=== PATIENT | female | born 1965 | race Caucasian/White ===

== ENCOUNTER → 2016-04-24 | Outpatient (CLI) | payer BC, OTHER ==
[~2016-04-24] MED LIST: ATV5X PO; CALC600T9 PO; IMT100 PO; MULT-506 PO; OMEG10007 PO; SRQ300 PO; SUMA1INJ5 IM; VRPSR180 PO; VST25HP PO
--- NOTE | 2016-04-24 11:40 | DIAGNOSTIC IMAGING REPORT ---
PELVIS AND RIGHT HIP RADIOGRAPHS CLINICAL HISTORY: Right hip pain. COMPARISON: Pelvis radiograph March 19, 2014. FINDINGS: The iliac crests are not included on this exam. The sacroiliac joints and symphysis pubis are intact. There is no fracture or suspicious lesion within the pelvis or hips. There is mild to moderate joint space narrowing of the hips with osteophytosis. There is no evidence for avascular necrosis. IMPRESSION: 1. Mild to moderate joint space narrowing and osteophytosis of both hips. 2. No acute fracture within the pelvis or hips. Electronically signed by: Javier Barksdale M.D. 04/24/2016 11:38 AM Dictated Date/Time: 04/24/2016 11:32 AM
== END | disposition home or self-care (01) ==
LOC: C.RDSM 11:12
PROVIDERS: ATTEND Physical Medicine & Rehabilitation Sports Medicine
DX: R52 Pain, unspecified (principal); M16.0 Bilateral primary osteoarthritis of hip; M25.751 Osteophyte, right hip; M25.752 Osteophyte, left hip

== ENCOUNTER → 2016-09-25 | Outpatient (CLI) | payer BC ==
--- NOTE | 2016-09-25 11:18 | DIAGNOSTIC IMAGING REPORT ---
ULTRASOUND ABDOMEN COMPLETE CLINICAL HISTORY: Generalized abdominal pain. COMPARISON STUDY: Abdominal CT dated 12/20/2013. TECHNIQUE: Real-time, grayscale, and color flow sonography of the abdomen was performed. Images are reviewed in the transverse and longitudinal planes. FINDINGS: Liver: The liver is normal in size and echotexture. There is no intrahepatic biliary ductal dilatation. The main portal vein is patent. Gallbladder: The gallbladder is normal in appearance. No gallstones are identified. There is no gallbladder wall thickening or pericholecystic fluid. A sonographic Moore's sign is reportedly absent. The common bile duct measures up to 0.4 cm in diameter. Pancreas: Visualized portions of the pancreatic head and body are normal in appearance. Spleen: The spleen is normal in size and echotexture, measuring 8.8 cm in length. Kidneys: The kidneys are normal in size and echotexture. There is no hydronephrosis. The right kidney measures 10.3 cm in length and the left kidney measures 10.9 cm in length. No shadowing calculi are identified. Abdominal vasculature: Visualized portions of the abdominal aorta and IVC are normal in appearance. Ascites: None. IMPRESSION: Unremarkable sonographic assessment of the abdomen. Electronically signed by: George Becerra M.D. 09/25/2016 11:17 AM Dictated Date/Time: 09/25/2016 10:20 AM
== END | disposition home or self-care (01) ==
LOC: C.ULTR 09:47
PROVIDERS: ATTEND Family Medicine
DX: R10.30 Lower abdominal pain, unspecified (principal); F33.9 Major depressive disorder, recurrent, unspecified; Z79.899 Other long term (current) drug therapy

== ENCOUNTER → 2016-09-25 | Outpatient (CLI) | payer BC ==
[2016-09-25 12:48] LABS: CHOLESTEROL/HDL RATIO 3.3; THYROID STIMULATING HORMONE 1.41 uIu/ml (0.300-4.500)
== END | disposition home or self-care (01) ==
LOC: C.LAB 09:49
PROVIDERS: ATTEND Psychiatry & Neurology Psychiatry
DX: F33.9 Major depressive disorder, recurrent, unspecified (principal); Z79.899 Other long term (current) drug therapy

== ENCOUNTER → 2017-03-09 | Outpatient (CLI) | payer BC ==
--- NOTE | 2017-03-09 14:58 | DIAGNOSTIC IMAGING REPORT ---
LUMBAR SPINE MIN 4 VIEWS CLINICAL HISTORY: ACUTE BILATERAL BACK PAIN COMPARISON STUDY: 03/30/2012 FINDINGS: No acute fractures or subluxations are visualized. No destructive lesions are evident. There are mild multilevel degenerative changes most pronounced in the lower thoracic spine. IMPRESSION: 1. No fractures or subluxations identified 2. Mild multilevel degenerative change Electronically signed by: Sergio Lehman M.D. 03/09/2017 2:57 PM Dictated Date/Time: 03/09/2017 2:56 PM
== END | disposition home or self-care (01) ==
LOC: C.RDSM 11:30
PROVIDERS: ATTEND Internal Medicine
DX: M54.9 Dorsalgia, unspecified (principal); M89.8X8 Other specified disorders of bone, other site

== ENCOUNTER → 2017-03-24 | Outpatient (CLI) | payer BC | END | disposition home or self-care (01) | LOC: C.PAPS 13:29 | PROVIDERS: ATTEND Obstetrics & Gynecology | DX: Z01.419 Encounter for gynecological examination (general) (routine) without abnormal findings (principal) ==

== ENCOUNTER → 2017-03-24 | Outpatient (CLI) | payer BC | END | disposition home or self-care (01) | LOC: C.LABSPEC 13:38 | PROVIDERS: ATTEND Obstetrics & Gynecology | DX: N76.0 Acute vaginitis (principal) ==

== ENCOUNTER 2017-06-01 16:04 | Emergency (ER) | payer BC ==
[~2017-06-01] VITALS: Ht 167.6 cm; Wt 72.7 kg
[2017-06-01 16:07] VITALS: TEMP 37.1; Ht 167.6 cm; Wt 72.7 kg
[2017-06-01 16:51] VITALS: O2SAT 100
[2017-06-01] MEDS ORDERED: SODIUM CHLORIDE 0.9% 500ML 500 ML IV STA (17:03)
[2017-06-01] MEDS ORDERED: LORAZEPAM 2 MG/ML 1 ML VIAL IV STA (17:19)
[2017-06-01 17:22] LABS: BASO % 0.3 %; BASO ABS # 0.03 K/uL (0-0.2); EOS % 0.7 %; EOS ABS # 0.06 K/uL (0-0.5); HEMATOCRIT 44.4 % (37-47); HEMOGLOBIN 15.7 g/dL (12.0-16.0); IG# 0.02 K/uL (0.00-0.02); LYMPH ABS # 1.47 K/uL (1.2-3.4); MEAN CELL VOLUME 90.6 fL (80-100); MEAN CORPUSCULAR HGB CONC 35.4 g/dl (32-36); MEAN PLATELET VOLUME 9.6 fL (7.4-10.4); MONO % 5.3 %; MONO ABS # 0.46 K/uL (0.11-0.59); NEUT % 76.5 %; NEUT ABS # 6.63 K/uL (1.4-6.5); PLATELET COUNT 280 K/uL (130-400); RED CELL DISTRIBUTION WIDTH CV 12.5 % (11.5-14.5); RED CELL DISTRIBUTION WIDTH SD 41.7 fL (36.4-46.3); WHITE BLOOD COUNT 8.67 K/uL (4.8-10.8)
[2017-06-01 17:47] LABS: ALBUMIN 4.1 gm/dl (3.4-5.0); ALT/SGPT 19 U/L (12-78); BLOOD UREA NITROGEN 14 mg/dl (7-18); CALCIUM 8.9 mg/dl (8.5-10.1); CARBON DIOXIDE 23 mmol/L (21-32); CREATININE 1.28 mg/dl (0.60-1.20); GLUCOSE 93 mg/dl (70-99); POTASSIUM 3.6 mmol/L (3.5-5.1); SODIUM 135 mmol/L (136-145)
[2017-06-01 17:58] LABS: ALKALINE PHOSPHATASE 39 U/L (45-117); AST/SGOT 21 U/L (15-37)
[2017-06-01 17:58] LABS: INFLUENZA B ANTIGEN Neg for Influ B (NEG)
[2017-06-01] MEDS ORDERED: TOPI50TA24 PO (18:48)
[2017-06-01] MEDS ORDERED: GADAVIST IV PRN (19:15)
--- NOTE | 2017-06-01 19:20 | DIAGNOSTIC IMAGING REPORT ---
BRAIN COMBO HISTORY: 51 years-old Female atypical head, hx migraines, posterior headache acute posterior headache with high blood pressure and history of migraines COMPARISON: MRI brain 01/11/2014 TECHNIQUE: Multiplanar multisequence MRI of the brain was obtained both with and without the use of 7 mL Gadavist FINDINGS: Large field of view inside b2b sales localizer images demonstrate no gross abnormality. Midline structures including the corpus callosum, brainstem, optic chiasm, pituitary and pineal glands appear unremarkable on the sagittal T1 series. No cerebellar tonsillar herniation. Minimal degenerative changes of the imaged cervical spine. There is no restricted diffusion to suggest acute or subacute infarction. No acute intracranial hemorrhage, midline shift, abnormal extra-axial collections or hydrocephalus. No significant abnormal T2/FLAIR signal abnormalities within the brain parenchyma. There is no abnormal intra-axial or extra-axial enhancement identified. Major flow voids at the level of the skull base appear patent. Orbits are symmetric and within normal limits. Paranasal sinuses are generally clear. Mastoid air cells are also clear. Scalp, calvarium and soft tissues are unremarkable. IMPRESSION: 1. No acute intracranial abnormality. 2. No abnormal intra-axial or extra-axial enhancement. The above report was generated using voice recognition software. It may contain grammatical, syntax or spelling errors. Electronically signed by: Aniceto Edwards M.D. 06/01/2017 7:19 PM Dictated Date/Time: 06/01/2017 7:13 PM
--- NOTE | 2017-06-01 19:32 | EMERGENCY ROOM VISIT NOTE ---
History Report prepared by Bulmaro: Shikha Laguerre Under the Supervision of: Dr. Patty Barry D.O. First contact with patient: 16:19 Chief Complaint: HYPERTENSION Stated Complaint: HEADACHE, HIGH BLOOD PRESSURE, VERTIGO History of Present Illness The patient is a 51 year old female who presents to the Emergency Room with complaints of an episode of hypertension occurring this morning. The patient was seen by her PCP this afternoon who noticed her blood pressure was high and referred her to the ED. Her blood pressure on arrival to the ED was 160/112. The patient has a history of anxiety. She states she was on Lamictal for a couple months and started tapering off of it a couple of weeks ago. She reports the highest dose of Lamictal she was on was 150 mg. The patient reports she has had headache which started when she started tapering off. She has a history of migraines however she reports her headaches recently have been more of a tension headache rather than her normal migraines. She states she has been having the migraines daily. The patient also reports rashes, sore throats, vertigo, numbness and tingling in finger tips which she believes is a result of Lamictal withdrawal. She states "I may have gotten too excited with tapering off my Lamictal". She reports when she went down to 25 mg of Lamictal she started having these symptoms. The patient also had neuro feedback treatment when her symptoms of headache began which was also when she was tapering off her Lamictal. The patient also notes fatigue beginning yesterday. 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 The patient states "my issue plain and simple is untreated anxiety". The patient was on Lorazepam previously for 10 years. She reports the Lorazepam worked well for her but her PCP took her off of because it "wasn't a good vb developer medication" The patient believes she last had imaging on her head in 2011. Pt denies change in vision, fevers, chest pain, shortness of breath, nausea, vomiting, diarrhea, pain with urination , and melena. Source of History: patient Onset: just prior to arrival Position: other (generalized) Quality: other (hypertension) Timing: other (episode) Associated Symptoms: + headache, + fatigue, + numbness, No fevers, No chest pain, No SOB, No nausea, No vomiting Review of Systems See HPI for pertinent positives & negatives. A total of 10 systems reviewed and were otherwise negative. Past Medical & Surgical Medical Problems: (1) Hypertension Nos (2) Irritable Bowel Syndrome (3) Lumbar Disc Displacement (4) Migraine (5) Posttraumatic Stress Disorder (6) Unspec Constipation Surgical Problems: (1) H/O discectomy Family History Cancer Social History Smoking Status: Never Smoker Alcohol Use: occasionally Drug Use: none Marital Status: Housing Status: lives with significant other Occupation Status: employed Current/Historical Medications Scheduled Hydroxyzine HCl (Hydroxyzine Pamoate), 75 MG PO HS Quetiapine Fumarate (Quetiapine Fumarate), 300 MG PO HS Topiramate (Topamax), 50 MG PO DAILY Scheduled PRN Sumatriptan Succinate (Sumatriptan Succinate), 6 MG IM UD PRN for Migraine Sumatriptan Succinate (Imitrex), 100 MG PO UD PRN for Migraine Allergies Uncoded Allergies: NARCOTIC ANALGESICS EXCEPT MORPHINE (Adverse Reaction, Intermediate, N/V, ) Physical Exam Vital Signs Date Time Temp Pulse Resp B/P (MAP) Pulse Ox O2 Delivery O2 Flow Rate FiO2 06/01/17 21:09 73 16 151/80 98 Room Air 06/01/17 19:45 88 18 145/96 100 Room Air 06/01/17 17:35 88 18 162/98 100 Room Air 06/01/17 16:51 100 Room Air 06/01/17 16:48 106 06/01/17 16:07 37.1 108 20 168/112 100 Room Air Physical Exam GENERAL: alert, anxious appearing, well nourished, no distress, non-toxic EYE EXAM: normal conjunctiva, PERRL and EOM's grossly intact OROPHARYNX: no exudate, no erythema, lips, buccal mucosa, and tongue normal and mucous membranes are moist NECK: supple, no nuchal rigidity, no adenopathy, non-tender LUNGS: Clear to auscultation. Normal chest wall mechanics HEART: no murmurs, S1 normal and S2 normal ABDOMEN: abdomen soft, non-tender, normo-active bowel sounds, no masses, no rebound or guarding. BACK: Back is symmetrical on inspection and there is no deformity, no midline tenderness, no CVA tenderness. SKIN: no rashes and no bruising UPPER EXTREMITIES: upper extremities are grossly normal. LOWER EXTREMITIES: No pitting edema. NEURO EXAM: Normal sensorium, cranial nerves II-XII intact, normal speech, no weakness of arms, no weakness of legs. No drift. Finger to nose intact. Gross sensation intact. Medical Decision & Procedures ER Provider Diagnostic Interpretation: Radiology results have been interpreted by the radiologist and reviewed by me. BRAIN COMBO FINDINGS: Large field of view graduate fellow localizer images demonstrate no gross abnormality. Midline structures including the corpus callosum, brainstem, optic chiasm, pituitary and pineal glands appear unremarkable on the sagittal T1 series. No cerebellar tonsillar herniation. Minimal degenerative changes of the imaged cervical spine. There is no restricted diffusion to suggest acute or subacute infarction. No acute intracranial hemorrhage, midline shift, abnormal extra-axial collections or hydrocephalus. No significant abnormal T2/FLAIR signal abnormalities within the brain parenchyma. There is no abnormal intra-axial or extra-axial enhancement identified. Major flow voids at the level of the skull base appear patent. Orbits are symmetric and within normal limits. Paranasal sinuses are generally clear. Mastoid air cells are also clear. Scalp, calvarium and soft tissues are unremarkable. IMPRESSION: 1. No acute intracranial abnormality. 2. No abnormal intra-axial or extra-axial enhancement. The above report was generated using voice recognition software. It may contain grammatical, syntax or spelling errors. Electronically signed by: Aniceto Edwards M.D. Laboratory Results 06/01/17 16:51 Red Blood Count 4.90, Mean Corpuscular Volume 90.6, Mean Corpuscular Hemoglobin 32.0, Mean Corpuscular Hemoglobin Concent 35.4, Mean Platelet Volume 9.6, Neutrophils (%) (Auto) 76.5, Lymphocytes (%) (Auto) 17.0, Monocytes (%) (Auto) 5.3, Eosinophils (%) (Auto) 0.7, Basophils (%) (Auto) 0.3, Neutrophils # (Auto) 6.63, Lymphocytes # (Auto) 1.47, Monocytes # (Auto) 0.46, Eosinophils # (Auto) 0.06, Basophils # (Auto) 0.03 06/01/17 16:51 Test 06/01/17 16:51 06/01/17 17:18 06/01/17 17:21 White Blood Count 8.67 K/uL (4.8-10.8) Red Blood Count 4.90 M/uL (4.2-5.4) Hemoglobin 15.7 g/dL (12.0-16.0) Hematocrit 44.4 % (37-47) Mean Corpuscular Volume 90.6 fL (80-100) Mean Corpuscular Hemoglobin 32.0 pg (25-34) Mean Corpuscular Hemoglobin Concent 35.4 g/dl (32-36) Platelet Count 280 K/uL (130-400) Mean Platelet Volume 9.6 fL (7.4-10.4) Neutrophils (%) (Auto) 76.5 % Lymphocytes (%) (Auto) 17.0 % Monocytes (%) (Auto) 5.3 % Eosinophils (%) (Auto) 0.7 % Basophils (%) (Auto) 0.3 % Neutrophils # (Auto) 6.63 K/uL (1.4-6.5) Lymphocytes # (Auto) 1.47 K/uL (1.2-3.4) Monocytes # (Auto) 0.46 K/uL (0.11-0.59) Eosinophils # (Auto) 0.06 K/uL (0-0.5) Basophils # (Auto) 0.03 K/uL (0-0.2) RDW Standard Deviation 41.7 fL (36.4-46.3) RDW Coefficient of Variation 12.5 % (11.5-14.5) Immature Granulocyte % (Auto) 0.2 % Immature Granulocyte # (Auto) 0.02 K/uL (0.00-0.02) Prothrombin Time 10.0 SECONDS (9.0-12.0) Prothromb Time International Ratio 1.0 (0.9-1.1) Anion Gap 9.0 mmol/L (3-11) Est Creatinine Clear Calc Drug Dose 54.3 ml/min Estimated GFR () 56.8 Estimated GFR (Non- 49.0 BUN/Creatinine Ratio 10.7 (10-20) Calcium Level 8.9 mg/dl (8.5-10.1) Magnesium Level 2.3 mg/dl (1.8-2.4) Total Bilirubin 0.4 mg/dl (0.2-1) Aspartate Amino Transf (AST/SGOT) 21 U/L (15-37) Alanine Aminotransferase (ALT/SGPT) 19 U/L (12-78) Alkaline Phosphatase 39 U/L (45-117) Troponin I < 0.015 ng/ml (0-0.045) Total Protein 8.0 gm/dl (6.4-8.2) Albumin 4.1 gm/dl (3.4-5.0) Globulin 3.9 gm/dl (2.5-4.0) Albumin/Globulin Ratio 1.0 (0.9-2) Thyroid Stimulating Hormone (TSH) 1.310 uIu/ml (0.300-4.500) Urine Color YELLOW Urine Appearance CLEAR (CLEAR) Urine pH 6.0 (4.5-7.5) Urine Specific [place] 1.006 (1.000-1.030) Urine Protein NEG (NEG) Urine Glucose (UA) NEG (NEG) Urine Ketones NEG (NEG) Urine Occult Blood NEG (NEG) Urine Nitrite NEG (NEG) Urine Bilirubin NEG (NEG) Urine Urobilinogen NEG (NEG) Urine Leukocyte Esterase NEG (NEG) Influenza Type A Antigen Neg for Influ A (NEG) Influenza Type B Antigen Neg for Influ B (NEG) Laboratory results per my review. Medications Administered Medications (Trade) Dose Ordered Sig/Tobi Route Start Time Stop Time Status Last Admin Dose Admin Sodium Chloride 500 ml @ 999 mls/hr Q31M STAT IV 06/01/17 17:03 06/01/17 17:33 DC 06/01/17 17:23 999 MLS/HR Lorazepam (Ativan Inj) 1 mg NOW STAT IV 06/01/17 17:19 06/01/17 17:20 DC 06/01/17 17:34 1 MG Ondansetron HCl (Zofran Inj) 4 mg NOW STAT IV 06/01/17 19:53 06/01/17 19:54 DC 06/01/17 20:21 4 MG Ibuprofen (Motrin Tab) 600 mg NOW STAT PO 06/01/17 20:16 06/01/17 20:17 DC 06/01/17 20:22 600 MG Tramadol HCl (Ultram Tab) 50 mg NOW STAT PO 06/01/17 20:16 06/01/17 20:17 DC 06/01/17 20:21 50 MG Lorazepam (Ativan 1MG Home Pack) 1 homepack UD ONCE PO 06/01/17 20:30 06/01/17 20:32 DC 06/01/17 21:17 1 HOMEPACK ECG Per My Interpretation Indication: other (hypertension) Rate (beats per minute): 91 Rhythm: normal sinus Findings: no acute ischemic change, no ectopy ED Course 1644: The patient was evaluated in room A12A. A complete history and physical exam was performed. 1702: Ordered Sodium Chloride 500 ml @ 999 mls/hr IV. 1718: Ordered Lorazepam 1 mg IV. 1914: Ordered Gadobutrol 7 mmol IV. 1942: On reassessment the patient's blood pressure is improved. I updated her on her results. She still is complaining of a headache. 1952: Ordered Zofran Inj 4 mg IV, Toradol Inj 30 mg IV. 2015: Ordered Ultram Tab 50 mg PO, Ibuprofen 600 mg PO. 2029: Ordered Lorazepam 1 Homepack PO. []: Upon reevaluation, the patient is feeling better. I discussed the findings and the treatment plan with the patient. She verbalizes agreement and understanding. She was discharged home. Medical Decision Differential diagnosis: Etiologies such as benign hypertension, hypertensive emergency, cardiovascular pathology, pheochromocytoma, electrolyte abnormality, renal disease, endorgan damage, migraine headache, meningitis, sinusitis, CO exposure, ICH, SAH, infection, tumor, headache, sinus thrombosis, arterial dissection, as well as others were entertained. Patient anxious appearing but otherwise well-appearing here. Patient's symptoms improved with anxiety prior to her MRI. Patient subsequently given a dose of medication to help with her headache. No evidence of acute intracranial pathology. Patient with known history of migraines as well as tension headaches, but felt today's headache was atypical and was concerned it may be related to other pathology including her blood pressure. Discussed with her possibility of hypertensive urgency, although given her pain as well as anxiety, it is possible that the hypertension was secondary to her other symptoms first. No evidence of acute infectious etiology, I do not suspect other cardiac pathology or vascular pathology. Patient was otherwise reassuring vital signs and improved blood pressure here without the addition of antihypertensive agents. Discussed with patient close follow-up with her family doctor as well as neurologist. Discussion regarding her recent Lamictal taper and possible need for a longer taper or an additional agent to help bridge. Advised a recheck of her blood pressure by her family doctor and discussion about possible need for an antihypertensive agent. Discussed with her symptoms to watch and return for, she verbalized understanding was agreeable with plan. Patient well-appearing at time of discharge, ambulate with a steady gait, tolerating p.o., and comfortable going home. Medication Reconcilliation Current Medication List: was personally reviewed by me Blood Pressure Screening Patient's blood pressure: Elevated blood pressure Blood pressure disposition: Elevated BP felt to be situational Impression Primary Impression: Headache Additional Impressions: Hypertension Anxiety Scribe Attestation The scribe's documentation has been prepared under my direction and personally reviewed by me in its entirety. I confirm that the note above accurately reflects all work, treatment, procedures, and medical decision making performed by me. Departure Information Dispostion Home / Self-Care Referrals Sunil Toledo M.D. (PCP) Forms HOME CARE DOCUMENTATION FORM, IMPORTANT VISIT INFORMATION, WORK / SCHOOL INSTRUCTIONS Patient Instructions My [facility] Additional Instructions Please continue your regular medications as prescribed. Please keep your follow -up appointments with your neurologist to discuss your recent Lamictal taper. Please also call follow-up with your family doctor and discuss treatment of your high blood pressure. If you develop worsening headaches, dizziness, vision changes, fevers, vomiting, chest pain or trouble breathing, are unable to walk, you have any other new concerns, please return the emergency room. Problem Qualifiers Primary Impression: Headache Headache type: unspecified Headache chronicity pattern: episodic headache Intractability: not intractable Qualified Codes: R51 - Headache Additional Impressions: Hypertension Hypertension type: unspecified Qualified Codes: I10 - Essential (primary) hypertension
[2017-06-01] MEDS ORDERED: ONDANSETRON INJ 2 MG/ML 2 ML VIAL IV STA (19:53)
[2017-06-01] MEDS ORDERED: KETOROLAC TROMETHAMINE 30 MG/ML VIAL IV STA (19:53)
[2017-06-01] MEDS ORDERED: IBUPROFEN 600 MG TAB PO STA (20:16)
[2017-06-01] MEDS ORDERED: TRAMADOL HCL 50 MG TAB PO STA (20:16)
[2017-06-01] MEDS ORDERED: ATIVAN 1MG HOMEPACK PO ONE (20:30)
[2017-06-01 21:09] VITALS: BP 151/80; PULSE 73; O2SAT 98
== END 2017-06-01 21:22 | disposition home or self-care (01) ==
LOC: C.EDB 16:06 → C.EDA 21:22
DX: G43.909 Migraine, unspecified, not intractable, without status migrainosus (principal); I10 Essential (primary) hypertension; F41.9 Anxiety disorder, unspecified; K58.9 Irritable bowel syndrome, unspecified; M51.26 Other intervertebral disc displacement, lumbar region; Z88.5 Allergy status to narcotic agent; Z79.899 Other long term (current) drug therapy

== ENCOUNTER → 2017-09-09 | Outpatient (CLI) | payer BC ==
[~2017-09-09] MED LIST changes: -ATV5X PO; -CALC600T9 PO; -MULT-506 PO; -OMEG10007 PO; +TOPI50TA24 PO; -VRPSR180 PO
--- NOTE | 2017-09-09 15:54 | DIAGNOSTIC IMAGING REPORT ---
L KNEE 4 OR MORE CLINICAL HISTORY: LEFT KNEE PAIN pain COMPARISON: None. DISCUSSION: The bones and joint spaces appear intact. There is no evidence of fracture, dislocation or bony disease. There is no evidence for soft tissue swelling. IMPRESSION: Negative study. The above report was generated using voice recognition software. It may contain grammatical, syntax or spelling errors. Electronically signed by: Wesly Burnett M.D. 09/09/2017 3:53 PM Dictated Date/Time: 09/09/2017 3:52 PM
== END | disposition home or self-care (01) ==
LOC: C.RDSM 15:11
PROVIDERS: ATTEND Physician Assistant
DX: M25.562 Pain in left knee (principal)

== ENCOUNTER 2019-11-24 05:14 | Observation (INO) ==
--- NOTE | 2019-10-24 08:46 | PAT Medication Instructions ---
Medication Instructions Date of Service October 24, 2019 Home Medications Medication Instructions Recorded Leoncio Garcia #1 ea 09/04/19 meloxicam 15 mg tablet 15 mg PO DAILY PRN #30 tab 09/04/19 alprazolam 0.25 mg tablet 0.5 mg PO TID cholecalciferol (vitamin D3) 50 mcg (2,000 unit) tablet 1,000 units PO QAM hydroxyzine pamoate 50 mg capsule 75 mg PO HS metoprolol succinate 50 mg tablet,extended release 24 hr 50 mg PO QAM sumatriptan succinate 100 mg tablet 100 mg PO UD PRN meloxicam 15 mg tablet 15 mg PO DAILY PRN Medical Marijuana Card 1 dose PO DAILY PRN ipratropium bromide 2 sprays INTNAS BID norethindrone-e.estradiol-iron [] 1 tab PO QAM quetiapine 300 mg PO HS ASK your surgeon for instructions meloxicam 15 mg tablet 15 mg PO DAILY PRN DO NOT take the morning of surgery cholecalciferol (vitamin D3) 50 mcg (2,000 unit) tablet 1,000 units PO QAM Medical Marijuana 1 dose PO DAILY PRN Take morning of surgery With a small sip of water, OTHERWISE NOTHING TO EAT OR DRINK AFTER MIDNIGHT: alprazolam 0.25 mg tablet 0.5 mg PO TID metoprolol succinate 50 mg tablet,extended release 24 hr 50 mg PO QAM sumatriptan succinate 100 mg tablet 100 mg PO UD PRN (if needed) ipratropium bromide 2 sprays INTNAS BID norethindrone-e.estradiol-iron [] 1 tab PO QAM Take evening before surgery alprazolam 0.25 mg tablet 0.5 mg PO TID hydroxyzine pamoate 50 mg capsule 75 mg PO HS sumatriptan succinate 100 mg tablet 100 mg PO UD PRN (if needed) Medical Marijuana Card 1 dose PO DAILY PRN (if needed) ipratropium bromide 2 sprays INTNAS BID quetiapine 300 mg PO HS Other Notes If you have any questions please call us at [phone] or [phone] or [phone] or [phone]
--- NOTE | 2019-10-25 14:23 | Anesthesiology Consultation ---
Date of Service October 25, 2019 Assessment & Plan (1) Encounter for pre-operative examination: COVID Status: As of 10/24 assessment, patient denies travel to endemic area, known exposure/sick contacts, or symptoms of COVID19. Patient instructed that they and their household members must follow strict social distancing guidelines, wear a mask in public and avoid travel for 14 days prior to surgery. Preoperative COVID19 testing to be completed prior to surgery per surgeon's arr angements. Patient made aware to self-isolate as much as possible between COVID testing and surgery. *Pt reports severe N/V with all narcotics except morphine* Chart Review Chart Review: Acceptable Risk for Surgery and Patient seen in Pre Admission Testing Teaching & Discussion Instructed NPO after midnight before surgery, except medications with 15 cc of water. Medication instructions provided according to the PAT guidelines. History Surgery Operation Date: 11/24/19 07:00 Proposed Procedures p Left Total Hip Replacement - Ulises Shah MD Height/Weight Height: 5 ft 6 in Weight: 76 kg Allergies Allergy/AdvReac Type Severity Reaction Status Date / Time NARCOTIC ANALGESICS EXCEPT AdvReac Intermediate N/V Uncoded 10/16/19 11:50 MORPHINE Medications Home Medications Medication Instructions Recorded Confirmed Last Taken alprazolam 0.25 mg tablet 0.5 mg PO TID 03/01/19 10/16/19 Unknown cholecalciferol (vitamin D3) 50 1,000 units PO QAM tab 03/01/19 10/16/19 Unknown mcg (2,000 unit) tablet hydroxyzine pamoate 50 mg capsule 75 mg PO HS cap 03/01/19 10/16/19 Unknown metoprolol succinate 50 mg 50 mg PO QAM 03/01/19 10/16/19 Unknown tablet,extended release 24 hr sumatriptan succinate 100 mg tablet 100 mg PO UD PRN tab 03/01/19 10/16/19 Unknown Wheeled Walker #1 ea 09/04/19 10/16/19 Unknown meloxicam 15 mg tablet 15 mg PO DAILY PRN #30 tab 09/04/19 10/16/19 Unknown Medical Marijuana Card 1 dose PO DAILY PRN 10/16/19 10/16/19 Unknown ipratropium bromide 2 sprays INTNAS BID 10/16/19 10/16/19 Unknown norethindrone-e.estradiol-iron 1 tab PO QAM 10/16/19 10/16/19 Unknown [] quetiapine 300 mg PO HS 10/16/19 10/16/19 Unknown Past Medical History Medical History Anxiety Arthritis of left hip Depression Hypertension IBS (irritable bowel syndrome) Migraine PTSD (post-traumatic stress disorder) Exercise / Class Metabolic Activity II 4-5 Yardwork/Stairs/Walk up hill Past Family History Family History Father Colon cancer Other No significant family history Past Surgical History Surgical History History of ankle surgery left with hardware History of colonoscopy History of dilatation and curettage History of tonsillectomy History of tooth extraction wisdom teeth Hx of Achilles tendon repair left Hx of discectomy lumbar L3/L4 Past Anesthesia History No Hx of Anesthesia Complications and No Family Hx of Anesthesia Complications History of PONV History of PONV (WITH ANY NARCOTIC EXCEPT MORPHINE) and Hx of Motion Sickness ( mild) Social History Smoking Status: Never smoker Do You Dip or Chew Tobacco: No Hx Alcohol Use: Yes Alcohol type: beer alcohol intake frequency: a few times a week Hx Substance Use: Yes substance use type: marijuana Substance Use Type Other:: MEDICAL MARIJUANA HASNT USED FOR APPROX 6 MONTHS Last Used Substance: Unknown Review of Systems Pt denies any recent chest pain, shortness of breath, palpitations, cough, fever, URI, or uncontrolled acid reflux. Physical Exam Vital Signs BP: 134/82 P: 66bpm SPO2: 99% RA T: 98.9 F R: 16 ENMT Mouth: no dental restorations, no chipped teeth and no loose teeth Thyromental Distance: > or= 3.5 Finger Breadths Mallampati Class: I Neck normal visual inspection; neck extension not limited Respiratory normal respiratory effort Auscultation: lungs clear to auscultation bilaterally Cardiovascular Rate/Rhythm: regular rate and regular rhythm Heart Sounds: no murmur Extremities: no edema Testing Laboratory Results 10/25/19 14:36 10/25/19 14:36 PT 10.4 Seconds (9.0-12.0) 10/25/19 14:36 INR 1.0 (0.9-1.1) 10/25/19 14:36 APTT 28.2 Seconds (21.0-31.0) 10/25/19 14:36 Blood Type A Positive 10/25/19 14:36 Antibody Screen NEGATIVE 10/25/19 14:36 Electrocardiogram Date: 10/25/19 Findings: + NSR @ (60bpm) Chest X-Ray Date: 10/25/19 Findings: + NAD
--- NOTE | 2019-10-25 15:03 | XRay Report ---
XR chest Pre-admission PA/Lat HISTORY: 54 years-old Female pat preoperative exam. No acute chest complaints COMPARISON: Chest radiograph 04/10/2012 TECHNIQUE: PA and lateral views of the chest FINDINGS: Nipple shadows project over the lung bases. Cardiomediastinal and hilar silhouettes are within normal limits. No pneumothorax, pleural effusion, airspace consolidation or overt pulmonary edema. Bones of the chest appear grossly intact. IMPRESSION: No acute process. ACT 112: Negative or not required by law. The above report was generated using voice recognition software. It may contain grammatical, syntax o r spelling errors. Electronically signed by: Aniceto Edwards M.D. 10/25/2019 3:01 PM
[2019-10-25 15:09] LABS: Basophils # (auto) 0.05 K/uL (0-0.2); Basophils % (auto) 0.5 %; Eosinophils # (auto) 0.35 K/uL (0-0.5); Eosinophils % (auto) 3.5 %; Hematocrit (blood only) 40.7 % (37-47); Hemoglobin 13.4 g/dL (12.0-16.0); Immature Granulocytes # (auto) 0.01 K/uL (0.00-0.02); Immature Granulocytes % (auto) 0.1 %; Lymphocytes # (auto) 1.92 K/uL (1.2-3.4); Mean Corpuscular Hemoglobin 30.7 pg (25-34); Mean Corpuscular Hgb Conc 32.9 g/dL (32-36); Mean Corpuscular Volume 93.1 fL (80-100); Mean Platelet Volume 9.6 fL (7.4-10.4); Monocytes # (auto) 0.47 K/uL (0.11-0.59); Monocytes % (auto) 4.7 %; Neutrophils # (auto) 7.28 K/uL (1.4-6.5); Neutrophils % (auto) 72.2 %; Platelet Count 286 K/uL (130-400); RDW Coefficient of Variation 12.2 % (11.5-14.5); RDW Standard Deviation 41.7 fL (36.4-46.3); Red Blood Count 4.37 M/uL (4.2-5.4); White Blood Count 10.08 K/uL (4.8-10.8)
[2019-10-25 15:23] LABS: Partial Thromboplastin Time 28.2 Seconds (21.0-31.0); Prothrombin Time 10.4 Seconds (9.0-12.0)
[2019-10-25 15:45] LABS: BUN Creatinine Ratio 14.5 (10-20); Calcium 9.1 mg/dl (8.5-10.1); Creatinine Clr Calc Pharmacy 56.6 ml/min; Est GFR (African American) 59.6; Est GFR (Non-African American) 51.4
--- NOTE | 2019-10-27 06:12 | Electrocardiogram Report ---
Test Reason : Blood Pressure : / mmHG Vent. Rate : 060 BPM Atrial Rate : 060 BPM P-R Int : 150 ms QRS Dur : 086 ms QT Int : 402 ms P-R-T Axes : 073 061 048 degrees QTc Int : 402 ms Normal sinus rhythm Normal ECG When compared with ECG of 01-JUN-2017 16:35, Vent. rate has decreased BY 31 BPM Confirmed by Shamir Reis ([id number]) on 10/27/2019 6:12:01 AM Referred By: Ulises Shah Confirmed By:Shamir Reis
--- NOTE | 2019-11-18 19:57 | History and Physical Report ---
DATE OF ADMISSION: 11/24/2019 CHIEF COMPLAINT: Left hip and groin pain. HISTORY OF PRESENT ILLNESS: A 54-year-old female who presents for treatment of her left hip. She has been a long-term patient of mine over the years. She has about a 6-8 month history of gradually and progressively increasing left hip pain and discomfort that has really curtailed her activities. She was initially seen by Dr. Mcnamara. He tried an injection under ultrasound, which did not help too much. She did have an MRI and then referred to Dr. Samayoa. He has recommended hip replacement surgery. She now presents for surgical treatment here. She describes groin pain. She used to walk 4 miles a day and now cannot walk even a half mile. She does try and continue to exercise using a bicycle. No known history of trauma. She takes meloxicam with minimal relief. She would like to proceed with surgical treatment. PAST MEDICAL HISTORY: Significant for: 1. Posttraumatic stress disorder. 2. Elevated cholesterol. 3. Hypertension. PAST SURGICAL HISTORY: Includes: 1. Discectomy. 2. Achilles tendon repair. ALLERGIES: OXYCODONE AND CODEINE DERIVATIVES, WHICH CAUSE NAUSEA ONLY. She does okay with tramadol and morphine. CURRENT MEDICINES: Include: 1. Alprazolam 0.5 mg 3 times a day. 2. Vitamin D3. 3. Hydroxyzine 75 mg at nighttime. 4. Ipratropium nasal spray 3 times a day. 5. Meloxicam 15 mg a day. 6. Metoprolol ER 25 mg a day. 7. Imitrex 100 mg p.r.n. SOCIAL HISTORY: A 54-year-old female. She is . 1-2 drinks per week. Does not smoke. Does not currently work outside the home. FAMILY HISTORY: Significant for colon cancer. REVIEW OF SYSTEMS: Negative for diabetes, neurologic problem, vascular problems or bleeding disorders. No chest pain or shortness of breath. No history of DVT or PE. No known bleeding problems. PHYSICAL EXAMINATION: GENERAL: Shows a pleasant, middle-aged female. Looks to be in good health. HEENT: Benign. NECK: Supple, no lymphadenopathy. LUNGS: Clear to auscultation. HEART: Has a regular rate and rhythm. ABDOMEN: Soft, nontender, nondistended. EXTREMITIES: Grossly neurovascularly intact except as follows: Examination of the left hip reveals the patient who ambulates with a slight bit of a limp. Leg lengths are equal. She does have pain and stiffness with hip motion, particularly internal rotation. She can internally rotate to about 10 degrees. Negative straight leg raise. No knee effusion. X-RAYS: X-ray of the left hip were reviewed. It shows advanced hip arthritis. She has got near complete loss of her superior joint space. She has got osteophytes around the femoral head as well as the acetabulum and a fairly large medial osteophyte. She has less severe disease on the right side. X-rays of the back look fairly benign. MRI: MRI of the left hip reveals a cohet-yb-avyxpnwd sized joint effusion. A little bit of marrow edema but pretty minimal. She has got some labral tears. ASSESSMENT: A 54-year-old female with a 6-8 month history of increasing left hip pain and discomfort, unresponsive to conservative treatment. It's beyond the point where arthroscopy would help her. She would like to have this fixed, and we will proceed with left hip replacement. PLAN: We are going to proceed with left total hip replacement. The risks and benefits of this procedure were explained to the patient including but not limited to DVT, PE, , infection, neurological injury, vascular injury, bleeding problem, pain, limited range of motion, stiffness, failure to relieve her symptoms, incomplete relief of symptoms, need for further surgery in the future, fracture, dislocation, need for revision surgery, leg length inequality, need for blood transfusion, nerve palsy, etc. The patient understands and desires to proceed. Informed consent was obtained. The patient has a history of a positive MRSA test in the past. She did recently have a test and it was negative. As far as pain control afterwards, she wants to use tramadol and morphine. She has had a lot of problems with nausea with oxycodone. She is planning to be discharged to home with some home health. CINDY
[2019-11-24] MEDS ORDERED: CEFAZOLIN 2000MG 2,000 MG/15 ML SYR IV SCH (06:00)
[2019-11-24] MEDS ORDERED: LR 60ML/HR IV SCH (06:00)
[2019-11-24] MEDS ORDERED: GABAPENTIN 900 MG DOSE PO SCH (06:00)
[2019-11-24] MEDS ORDERED: ROPIVACAINE 0.5% HCL/PF 150 MG, BUPIVACAINE 0.5% MPF 30 ML, EPINEPHrine 30MG/30ML (OR U... INSTIL SCH (06:00)
[2019-11-24] MEDS ORDERED: FAMOTIDINE 20 MG TAB PO SCH (06:00)
[2019-11-24] MEDS ORDERED: TRANEXAMIC ACID 1,000 MG **IV Pre-op IV SCH (06:00)
[2019-11-24] MEDS ORDERED: LR 500ML BOLUS, THEN 15ML/HR IV SCH (06:00)
[2019-11-24] MEDS ORDERED: ACETAMINOPHEN 500 MG TAB PO SCH (06:00)
[2019-11-24] MEDS ORDERED: BUPIVACAINE 0.5 % 5 MG/1 ML PF 10ML VIAL ONE (06:23)
[2019-11-24] MEDS ORDERED: fentaNYL citrate 100 MCG/2 ML VIAL ONE (06:26)
[2019-11-24] MEDS ORDERED: MoRPHine SULFATE PF 1 MG/ML 10 ML AMP/VIAL ONE (06:26)
[2019-11-24] MEDS ORDERED: MIDAZOLAM HCL 1 MG/ML 2ML VIAL ONE (06:26)
[2019-11-24] MEDS ORDERED: ONDANSETRON INJ 2 MG/ML 2 ML VIAL IV PRN ×2 (06:41→06:57)
[2019-11-24] MEDS ORDERED: HYDROmorphone INJ 2 MG/ML SYR/VIAL IV PRN (06:41)
[2019-11-24] MEDS ORDERED: PROMETHAZINE HCL 12.5 MG in SODIUM CHLORIDE 0.9% 50 ML IV PRN (06:41)
[2019-11-24] MEDS ORDERED: fentaNYL citrate 100 MCG/2 ML VIAL IV PRN (06:41)
[2019-11-24] MEDS ORDERED: ATROPINE SULFATE 0.1 MG/ML 10ML SYR IV PRN (06:41)
[2019-11-24] MEDS ORDERED: ePHEDrine sulfate 50 MG/ML AMP IV PRN ×2 (06:41→06:57)
[2019-11-24] MEDS ORDERED: BUPIVACAINE 0.5 % 5 MG/1 ML MPF 30ML VIAL ONE (06:46)
[2019-11-24] MEDS ORDERED: EPINEPHrine INJ 1 MG/ML AMP ONE (06:46)
[2019-11-24] MEDS ORDERED: BACITRACIN INJ 50,000 UNIT VIAL ONE (06:46)
--- NOTE | 2019-11-24 06:49 | History & Physical Bridge Note ---
Date of Service November 24, 2019 History & Physical Bridge Note I have examined the patient, reviewed the History & Physical and in the interval since the performance of the History & Physical I have noted the following changes of clinical significance: no changes noted
[2019-11-24] MEDS ORDERED: NALOXONE HCL 0.4 MG/1 ML VIAL/CARP IV PRN ×2 (06:57→09:26)
[2019-11-24] MEDS ORDERED: NALOXONE HCL 1 MG in SODIUM CHLORIDE 0.9% 1000ML 1,000 ML IV PRN (06:57)
[2019-11-24] MEDS ORDERED: DiphenhydrAMINE HCL 50 MG/ML VIAL IV PRN (06:57)
[2019-11-24] MEDS ORDERED: PROMETHAZINE HCL 25 MG in SODIUM CHLORIDE 0.9% 50 ML IV PRN (06:57)
[2019-11-24] MEDS ORDERED: NALOXONE HCL 0.08 MG in SYRINGE 1.8 ML IV PRN (06:57)
[2019-11-24] MEDS ORDERED: LACTATED RINGER'S 500 ML IV PRN (06:57)
[2019-11-24] MEDS ORDERED: MoRPHine SULFATE PF 1 MG/ML 10 ML AMP/VIAL INT SPINAL ONE (06:57)
[2019-11-24] MEDS ORDERED: MoRPHine SULFATE 2 MG/ML CARP IV PRN (06:57)
[2019-11-24] MEDS ORDERED: SODIUM CHLORIDE 0.9% 1000ML 1,000 ML IV SCH (07:00)
[2019-11-24] MEDS ORDERED: NO NARCOTICS OR SEDATIVES SCH (07:00)
[2019-11-24] MEDS ORDERED: PROPOFOL IV EMULSION 10 MG/ML 20 ML VIAL IV ONE (07:07)
[2019-11-24] MEDS ORDERED: ONDANSETRON INJ 2 MG/ML 2 ML VIAL ONE (07:21)
[2019-11-24] MEDS ORDERED: ePHEDrine sulfate 50 MG/ML AMP ONE (07:54)
--- NOTE | 2019-11-24 08:25 | Post Operative Brief Note ---
PG Immediate Post Op with CF Date of Surgery November 24, 2019 Pre & Post Diagnosis Operation Date: 11/24/19 07:00 Pre-Op Diagnosis: Left HIP DJD Post-Op Diagnosis: Left Hip DJD I identified the patient and participated in the time-out.: Yes Procedure Operation Date: 11/24/19 07:00 Actual Procedures p Left Total Hip Replacement(Left) - Ulises Shah MD Surgeon Ulises Shah MD Ferryboat Operator Cable Yeni, PAC Estimated Blood Loss 200 Findings Consistent with Post-Op Diagnosis Fluids 900 cc Specimens Specimen Description: Permanent Specimen: A) Left Femoral Head Drains Mojica Catheter Anesthesia Type Spinal MAC Complications none Disposition Accompanied Patient To Recovery: Yes Disposition: Recovery Room
--- NOTE | 2019-11-24 09:00 | Anesthesiology Progress Note ---
Date of Service November 24, 2019 Anesthesia Post Procedure Vital Signs Vital Signs: Temp Pulse Pulse Resp BP Pulse Ox 11/24/19 09:00 36.5 C 69 15 126/83 98 11/24/19 08:50 36.5 C 74 19 137/84 99 11/24/19 08:40 73 18 131/81 98 11/24/19 08:30 78 20 124/76 98 11/24/19 08:21 36.4 C L 78 14 134/72 100 11/24/19 06:15 72 20 160/91 H 100 11/24/19 06:00 37.3 C 89 20 165/99 H 100 Transfer of Care Handoff Completed per policy Notes Mental Status: alert / awake / arousable and participated in evaluation Patient Amnestic to Procedure: Yes Nausea / Vomiting: adequately controlled Pain: adequately controlled Airway Patency, RR, SpO2: stable & adequate BP & HR: stable & adequate Hydration State: stable & adequate Anesthetic Complications: no major complications apparent and Pt Satisfied with anesthetic care
--- NOTE | 2019-11-24 09:09 | XRay Report ---
AP PELVIS, CROSSTABLE LATERAL LEFT HIP History: Left total hip arthroplasty. Degenerative arthritis. Postop. FINDINGS: The patient is status post a left total hip arthroplasty. The hardware is intact. No fractu re or dislocation. Skin gina are in place. IMPRESSION: Left total hip arthroplasty. No evidence for hardware complication. ACT 112: Negative or not required by law. Electronically signed by: Ildefonso Stern M.D. 11/24/2019 9:07 AM
[2019-11-24] MEDS ORDERED: bisacodyL 10 MG SUPP PR PRN (09:26)
[2019-11-24] MEDS ORDERED: ALUMINUM/MAGNESIUM SUSP 30 ML UDC PO PRN (09:26)
[2019-11-24] MEDS ORDERED: SUMAtriptan succinate 100 MG TAB PO PRN (09:26)
[2019-11-24] MEDS ORDERED: METOCLOPRAMIDE HCL INJ 5 MG/ML 2 ML VIAL IV PRN (09:26)
[2019-11-24] MEDS ORDERED: [UNRECOGNIZED DRUG - OTHER] PO PRN (09:26)
[2019-11-24] MEDS ORDERED: MAGNESIUM HYDROXIDE SUSP 30 ML UDC PO PRN (09:26)
[2019-11-24] MEDS: GENERAL ORDER PROBLEM SCH ×4 (09:29→23:35)
[2019-11-24] MEDS: SODIUM CHLORIDE 0.9% 1000ML 1,000 ML IV SCH ×3 (09:46→19:35)
[2019-11-24] MEDS: METOPROLOL SUCC 50MG EXT REL TAB PO SCH (10:46)
[2019-11-24] MEDS: DOCUSATE SODIUM 100 MG CAP PO SCH ×2 (11:30→21:58)
[2019-11-24] MEDS: MULTIVITAMIN TAB PO SCH (11:31)
[2019-11-24] MEDS: KETOROLAC 30 MG/ML VIAL IV SCH ×3 (11:31→23:35)
[2019-11-24] MEDS: ASPIRIN 81 MG ECTAB PO SCH ×2 (11:31→21:58)
[2019-11-24] MEDS: ACETAMINOPHEN 500 MG TAB PO SCH ×2 (13:15→22:01)
[2019-11-24] MEDS ORDERED: TRANEXAMIC ACID / 0.7% NACL 1,000 MG/100 ML BAG IV SCH (14:28)
[2019-11-24] MEDS: CEFAZOLIN 1000MG 1,000 MG/7.5 ML SYR IV SCH ×2 (14:36→22:06)
[2019-11-24] MEDS: Scopolamine CHECK PATCH PLACEMENT SCH ×2 (15:18→23:34)
[2019-11-24] MEDS: ASCORBIC ACID 500 MG TAB PO SCH (18:17)
[2019-11-24] MEDS: FERROUS GLUCONATE 324 MG TAB PO SCH (18:17)
[2019-11-24] MEDS ORDERED: SENNA 8.6 MG TAB PO SCH (21:00)
[2019-11-24] MEDS ORDERED: QUETIAPINE FUMARATE 300 MG TABLET PO SCH (21:00)
[2019-11-25] MEDS ORDERED: HYDROmorphone INJ 0.5 MG/0.5 ML SYR IV PRN (00:57)
[2019-11-25] MEDS ORDERED: ONDANSETRON INJ 2 MG/ML 2 ML VIAL IV PRN (00:57)
[2019-11-25] MEDS ORDERED: DC INTRASPINAL MORPHINE ONE (00:57)
[2019-11-25] MEDS: ACETAMINOPHEN 500 MG TAB PO SCH ×2 (05:17→12:43)
[2019-11-25] MEDS: KETOROLAC 30 MG/ML VIAL IV SCH ×2 (05:17→12:43)
[2019-11-25 06:20] LABS: Basophils # (auto) 0.03 K/uL (0-0.2); Basophils % (auto) 0.4 %; Eosinophils # (auto) 0.21 K/uL (0-0.5); Hematocrit (blood only) 35.3 % (37-47); Hemoglobin 11.4 g/dL (12.0-16.0); Lymphocytes # (auto) 1.18 K/uL (1.2-3.4); Lymphocytes % (auto) 16.7 %; Mean Corpuscular Hemoglobin 30.6 pg (25-34); Mean Corpuscular Hgb Conc 32.3 g/dL (32-36); Mean Corpuscular Volume 94.9 fL (80-100); Mean Platelet Volume 9.7 fL (7.4-10.4); Monocytes # (auto) 0.59 K/uL (0.11-0.59); Monocytes % (auto) 8.3 %; Neutrophils # (auto) 5.06 K/uL (1.4-6.5); Neutrophils % (auto) 71.6 %; Platelet Count 214 K/uL (130-400); RDW Coefficient of Variation 12.5 % (11.5-14.5); Red Blood Count 3.72 M/uL (4.2-5.4); White Blood Count 7.07 K/uL (4.8-10.8)
[2019-11-25 06:48] LABS: BUN Creatinine Ratio 10.6 (10-20); Creatinine Clr Calc Pharmacy 65.2 ml/min; Est GFR (African American) 70.7; Potassium 3.8 mmol/L (3.5-5.1)
[2019-11-25] MEDS: TRAMADOL HCL 50 MG TABLET PO PRN ×2 (08:42→10:57)
[2019-11-25] MEDS: Scopolamine CHECK PATCH PLACEMENT SCH (08:43)
[2019-11-25] MEDS: DOCUSATE SODIUM 100 MG CAP PO SCH (08:43)
[2019-11-25] MEDS: METOPROLOL SUCC 50MG EXT REL TAB PO SCH (08:44)
[2019-11-25] MEDS: ASPIRIN 81 MG ECTAB PO SCH (08:45)
[2019-11-25] MEDS: ASCORBIC ACID 500 MG TAB PO SCH (08:45)
[2019-11-25] MEDS: MULTIVITAMIN TAB PO SCH (08:46)
[2019-11-25] MEDS: FERROUS GLUCONATE 324 MG TAB PO SCH (08:46)
--- NOTE | 2019-11-25 08:57 | Operative Report ---
Post Operative Report Pre & Post Diagnosis Operation Date: 11/24/19 07:00 Pre-Op Diagnosis: TOTAL LEFT HIP REPLACEMENT Post-Op Diagnosis: TOTAL LEFT HIP REPLACEMENT I identified the patient and participated in the time-out.: Yes Procedure Operation Date: 11/24/19 07:00 Actual Procedures p Left Total Hip Replacement(Left) - Ulises Shah MD Surgeon Ulises Shah MD Cardiovascular Rn Yeni, PAC Estimated Blood Loss 200 Findings Consistent with Post-Op Diagnosis Operative findings and his left hip DJD pain she had grade 4 [id number] disease. She had a fairly large medial acetabular osteophyte. Moderate-sized joint Fluids 900 cc. Specimens Left femoral head sent for pathology. Drains None. Anesthesia Type Spinal MAC Complications none Disposition Accompanied Patient To Recovery: Yes Disposition: Recovery Room Indications Patient is a 54-year-old very active female is had about 8-month history of gradually progressive increased left hip pain and discomfort, unresponsive to conservative care. Was really limiting her lifestyle. X-rays show advanced hip arthritis which has progressed over the past 6 months. She elected proceed with surgical treatment. Description of Procedure Operative implants consist of: 1. Biomet G7 size 50 mm acetabular shell. 2. 6.5 cancellus acetabular screws 1 of 35 mm length 1.5 mm length. 3. [place] hole eliminator. 4. 50 mm outer diameter 32 mm inner diameter highly cross-linked polyethylene liner. 5. Depuy [place] size 10 KLA femoral stem. 6. +5/32 mm ceramic articular ball. Patient was taken to the operating identified and placed on the operating table supine position protectors were properly padded. IV antibiotics arrived by anesthesia team. Spinal anesthetic and been implemented in the holding area. Mojica catheter was placed in sterile fashion. Patient was then placed in the right lateral decubitus position. Axillary roll was placed. Stulberg hip positioner was used for positioning. Left hip and leg were then prepped and draped in the usual sterile fashion. A posterior lateral posterior left hip was then performed through a curvilinear incision centered over the greater trochanter. Sharp dissection Through subcutaneous is down below the IT band with the IT band then incised the skin incision. The underlying greater bursa was excised. The piriformis and external rotators and the posterior capsule were then placed in the posterior aspect hip joint as a single layer. Great care was taken throughout the procedure protect the sciatic nerve at all times. Hip was internally rotated and dislocated. Femoral neck osteotomy cut was made with Final Cut about 5 mm above the lesser trochanter. Femoral head was removed and sent for pathology. The femur was retracted anteriorly. Attention drawn the acetabulum. The acetabular labrum was excised. The pulmonary fat was excised. Sequential reaming the acetabular was then performed beginning with a size 43 and progressing up to 49. A 50 mm Biomet G7 acetabular shell was then placed in about 40 degrees lateral opening and 20 degrees of anteversion. It was fixed with two 6.5 cancellus acetabular screws. Trial liner was placed. Attention drawn the femur. Proximal femur was entered with a cookie-cutter followed by canal finder. Then broached begin the size 8 and progressing up to 10. Got excellent fit of the 10. Calcar reamer was used smooth and off the calcar. Then trialed the hip and the +5 articular ball provide full stability in full extension and external rotation and flexion to 9 degrees into rotation over 50 degrees. Leg seemed appropriate. Soft tissue seen propria. Placing the implants. All trial implants were removed. An apex hole eliminator was placed. A highly cross-linked polyethylene liner was placed. A [place] size 10 KLA femoral stem was impacted in position. +5/32 mm ceramic articular ball was placed. Hip was located once again found to be stable. Attention drawn toward closing. Wound was irrigated with copious pulsatile lavage solution. I did inject locally with 60 cc approximate Marcaine with epinephrine. The posterior capsule and external rotators then repaired through drill holes in the posterior trochanter with #2 Tycron suture. The IT band gluteal fascia then closed in 1 PDS suture in a running fashion with subcutaneous tissues then closed in 2 layers with deep layer #1 Vicryl suture and subcutaneous tissue with 0 Dexon suture in a buried interrupted fashion. Skin was closed skin gina. Legs then cleaned dried a sterile dressing of Xeroform, 4 x 4's, sterile ABD pad, foam tape was applied. Patient then transferred to the recovery room in stable condition. Patient tolerated procedure well and there were no complications. Frankie Jaime, my physician assistant terminal manager, was present for the entire procedure. His assistance was essential and required for appropriate patient positioning, prepping and draping, surgical exposure, performing the technical details of the operation, placement the implants, closure of the wound, and placement of the sterile bandage. I attest to the content of the Intraoperative Record and any orders documented therein. Any exceptions are noted below.
[2019-11-25] MEDS ORDERED: ALPRAZolam 0.5 MG TABLET PO SCH (09:00)
[2019-11-25] MEDS ORDERED: CHOLECALCIFEROL 1,000 UNITS 25 MCG TAB PO SCH (09:00)
--- NOTE | 2019-11-25 09:07 | Progress Notes ---
DATE: 11/25/2019 SUBJECTIVE: A 54-year-old white female postop day 1 from a left hip replacement. She is doing pretty well. She walks in the hallways. Pain is controlled. No chest pain or shortness of breath. Not feeling dizzy or lightheaded. OBJECTIVE: VITAL SIGNS: Temperature 37.2. Vital signs stable. GENERAL: Shows a pleasant, middle-aged female. She is sitting up in her bedside chair, looks pretty comfortable this morning. EXTREMITIES: Examination of the left leg reveals the dressing to be clean, dry and intact. Thigh is soft and supple. Leg lengths are equal. Hip is located. She is neurologically intact. LABORATORY DATA: Hemoglobin 11.4. Hematocrit 35.3. Electrolytes are stable. ASSESSMENT: A 54-year-old white female postop day 1 from a left hip replacement, doing pretty well. Pain is controlled. Hip is located. She is neurologically intact. PLAN: 1. DVT prophylaxis including thigh-high TEDs, SCDs, and aspirin twice a day. 2. PT/OT. Weight bear as tolerated. Left total hip protocol. 3. Pain control, doing well with current pain regimen. 4. Disposition: Plan to discharge to home with some home health likely later today if she is doing okay.
--- NOTE | 2019-11-27 16:21 | Discharge Summary ---
Date of Service November 27, 2019 Admission HPI Per Admitting Provider Documented in the H & P Admission Exam (Per Admitting) Constitutional Documented in the h & P Discharge Data Consultations 11/25/19 08:00 Consult Case Management - Discharge Planning Routine Procedures Performed Operation Date: 11/24/19 07:00 Actual Procedures p Left Total Hip Replacement(Left) - Ulises Shah MD Hospital Course (1) Status post total hip replacement, left: This patient is a 54 year old male admitted on 11/24/19 and underwent total hip arthroplasty. She tolerated the procedure well and there were no complications. Transferred to the PACU post op and later to the orthopedic floor for further care. She was given ancef for antibiotic prophylaxis. She was also given ROCIO stockings, SCDs, and aspirin for DVT prophylaxis. Hemoglobin, hematocrit, and vital signs were monitored during her hospital stay and remained stable. Did not require any blood transfusions. There were no complications during her hospital stay. By post op day #1 the patient was tolerating a regular diet, pain was reasonably controlled with oral pain medicine, and she was participating in physical therapy. On post op day #1 the patient was discharged home and set up with home health care. She was given printed discharge instructions including prescriptions for extra strength tylenol, aspirin, and tramadol. Continue physical therapy, weight bearing as tolerated. Continue hip precautions. Continue ROCIO stockings. Follow up approximately 2 weeks post op or sooner if there are problems or concerns. Coding Level of Care Code None Diagnoses Status post total hip replacement, left Z96.642
== END 2019-11-25 13:29 | disposition home health service (06) ==
LOC: ASU 05:14 → 3E 05:14
DX: M16.12 Unilateral primary osteoarthritis, left hip; K58.9 Irritable bowel syndrome, unspecified; Z79.899 Other long term (current) drug therapy; I10 Essential (primary) hypertension; Z20.828 Contact with and (suspected) exposure to other viral communicable diseases; Z88.6 Allergy status to analgesic agent; F41.9 Anxiety disorder, unspecified; F43.10 Post-traumatic stress disorder, unspecified; Z88.5 Allergy status to narcotic agent; F32.9 Major depressive disorder, single episode, unspecified